=== PATIENT | male | born 1985 | race Caucasian/White ===

== ENCOUNTER 2020-06-13 21:25 | Emergency (ER) | payer BC, SELFPAY ==
[2020-06-13 21:32] VITALS: BP 132/98; PULSE 90; RESP 16; TEMP 36.6; O2SAT 99
--- NOTE | 2020-06-13 21:49 | ED.GENADULT ---
HPI - General Adult General Chief complaint: Wound/Laceration Stated complaint: L THUMB LAC W/ KNIFE Time Seen by Provider: 06/13/20 21:49 Source: patient Mode of arrival: ambulatory Limitations: no limitations History of Present Illness HPI narrative: Patient is a 34-year-old male who presents with laceration left thumb was using an [employer] knife cut the base of the left thumb patient notes his tetanus is up-to-date patient notes minimal discomfort presents per private vehicle no distress Related Data Allergies Allergy/AdvReac Type Severity Reaction Status Date / Time morphine Allergy Unknown rash Verified 06/09/20 15:41 Review of Systems Review of Systems: All systems reviewed & are unremarkable except as noted in HPI and below PMFSH Past Medical History Medical History ADHD (attention deficit hyperactivity disorder), predominantly hyperactive impulsive type Family History Family History (Updated 05/03/16 @ 10:53 by DOCTOR UNKNOWN) Mother Depression Father Depression Social History Social History Smoking status: Never smoker Exam Narrative: Exam Narrative: GENERAL: Well-appearing, well-nourished, and in no acute distress. HEAD: Normocephalic, atraumatic. EYES: PERRLA and EOMI. ENT: Nares clear, no rhinorrhea or epistaxis. Mucous membranes moist. EXTREMITIES: Normal range of motion. No edema. 1 cm linear superficial laceration base left thumb dorsal surface SKIN: Warm, dry, no rash. NEURO: No focal deficits. Alert and oriented x3. Neurovascularly intact PSYCH: Normal mood and affect. Course Course Emergency Course: Patient in the room no distress aware of case findings treatment plan diagnosis Vital Signs Vital signs: Vital Signs Temperature 97.9 F 06/13/20 21:32 Pulse Rate 90 06/13/20 21:32 Respiratory Rate 16 06/13/20 21:32 Blood Pressure 132/98 H 06/13/20 21:32 Pulse Oximetry 99 06/13/20 21:32 Temperature 97.9 F 06/13/20 21:32 Pulse Rate 90 06/13/20 21:32 Respiratory Rate 16 06/13/20 21:32 Blood Pressure 132/98 H 06/13/20 21:32 Pulse Oximetry 99 06/13/20 21:32 Procedures Laceration Laceration 1: Date: 06/13/20 Time: 21:50 Site: upper extremity Side (If applicable): left Size (cm): 1 Description: linear Depth: simple, single layer Local Anesthetic: lidocaine 1% ====== Skin Level ====== Skin layer closed with: elizabeth Number of sutures: 2 ====== Subcutaneous Layer ====== ====== Muscle Layer ====== ====== Tendon Layer ====== Medical Decision Making MDM Narrative Medical decision making narrative: Patients injury or pain is consistent with musculoskeletal etiology. No signs of neurological or vascular compromise on exam. Compartments and tisues are soft without signs of compartment syndrome. Pain is felt appropriate for further evaluation on an outpatient basis. Vital Signs Vital Signs: Vital Signs Temperature 97.9 F 06/13/20 21:32 Pulse Rate 90 06/13/20 21:32 Respiratory Rate 16 06/13/20 21:32 Blood Pressure 132/98 H 06/13/20 21:32 Pulse Oximetry 99 06/13/20 21:32 Temperature 97.9 F 06/13/20 21:32 Pulse Rate 90 06/13/20 21:32 Respiratory Rate 16 06/13/20 21:32 Blood Pressure 132/98 H 06/13/20 21:32 Pulse Oximetry 99 06/13/20 21:32 Discharge Plan Discharge Clinical Impression: Laceration of left thumb Patient Disposition: Home, Self-Care Condition: Stable Instructions: Antibiotic Form, Laceration (DC) Additional Instructions: Keep wound clean and dry. Do not soak, take baths, or swim until wound is completely healed. If any signs of infection such as redness, swelling, increasing pain, drainage of purulent discharge, streaks up your extremity develop, seek medical attention immediately. Fo
== END 2020-06-13 22:02 | disposition home or self-care (01) ==
PROVIDERS: Emergency Provider Emergency Medicine; PCP Internal Medicine
DX: S61.012A Laceration without foreign body of left thumb without damage to nail, initial encounter (principal); W27.0XXA Contact with workbench tool, initial encounter
CPT/HCPCS: 12001; 99282

== ENCOUNTER 2020-10-06 23:00 | Emergency (ER) | payer BC, SELFPAY ==
--- NOTE | ~2020-10-06 | XR_ITS ---
EXAMINATION: XR chest 2V DATE: 10/06/2020 23:22 INDICATION: Left chest pain. TECHNIQUE: Frontal and lateral views of the chest were obtained. COMPARISON: None. FINDINGS: The chest demonstrates clear lungs without pneumonia, pleural effusion, or pneumothorax. Th e heart size is normal. IMPRESSION: 1. No acute cardiopulmonary disease. Reviewed, dictated and finalized at location A.
[2020-10-06 23:03] VITALS: BP 138/77; PULSE 56; RESP 17; TEMP 37; O2SAT 100
--- NOTE | 2020-10-06 23:08 | ECG_ITS ---
Measurements Intervals [place] Rate: 59 P: 39 FL: 145 QRS: 63 QRSD: 104 T: 50 QT: 407 QTc: 403 Interpretive Statements SINUS BRADYCARDIA BASELINE ARTIFACT- I, II, AVR, AVF BORDERLINE ECG Electronically Signed On 10-07-2020 6:23:30 CDT by Wilbur Lloyd D.O.
[2020-10-06 23:19] LABS: Basophils Absolute Auto 0.1 K/mm3 (0.0-0.1); Basophils Percent Auto 0.8 % (0.2-1.2); Eosinophils Absolute Auto 0.1 K/mm3 (0-0.3); Eosinophils Percent Auto 1.7 % (0-4.4); Hematocrit 41.6 % (42.0-52.0); Hemoglobin 13.7 g/dL (14.0-18.0); Immature Granulocyte Absolute 0.04 K/mm3 (0.00-0.031); Immature Granulocyte Percent A 0.5 % (0-0.5); Lymphocytes Absolute Auto 2.21 K/mm3 (0.9-3.2); Lymphocytes Percent Auto 26.8 % (18.3-44.2); Mean Corpuscular HGB Conc 32.9 g/dl (32-36); Mean Corpuscular Hemoglobin 29.3 pg (26-34); Mean Corpuscular Volume 88.9 fl (80-100); Mean Platelet Volume 10.8 fl (7.4-10.4); Monocytes Absolute Auto 0.8 K/mm3 (0.1-0.6); Monocytes Percent Auto 9.4 % (2.6-8.5); Neutrophils Percent Auto 60.8 % (45.5-73.1); Platelet Count Result 222 k/mm3 (150-375); Red Blood Count 4.68 M/mm3 (4.6-6.20); Red Cell Distribution Width 12.6 % (11.5-14.5); White Blood Count 8.3 K/mm3 (4.5-10.0)
[2020-10-06] MEDS: ASPIRIN 81 MG CHEWABLE TABLET 324 MG PO (23:19)
[2020-10-06 23:28] LABS: Anion Gap 6 mmol/L (8-16); Blood Urea Nitrogen 27 mg/dL (9-20); Calcium 9.9 mg/dL (8.4-10.2); Carbon Dioxide 30 mmol/L (22-30); Chloride 100 mmol/L (98-107); Estimated CRCL calculation 89 ml/min; Estimated Glomerular Filt Rate > 60; Glucose 90 mg/dL (75-110); Potassium 3.7 mmol/L (3.4-5.0); Sodium 136 mmol/L (137-145)
[2020-10-06 23:32] LABS: Partial Thromboplastin Time 30.7 SECONDS (22.3-36.8)
[2020-10-06 23:41] LABS: Troponin I < 0.012 ng/mL (0.000-0.034)
--- NOTE | 2020-10-07 00:49 | ED.CHESTPAIN ---
HPI - Chest Pain General Chief Complaint: Chest Pain Stated Complaint: chest pain Time Seen by Provider: 10/06/20 23:16 History of Present Illness HPI narrative: Patient is a 35-year-old male who presents ER with chest pain. He was at work when he began to develop it. Its an aching pain 4 inches lateral to the sternum over his pectoralis minor. Reports he has some discomfort in his left arm with this. 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 Denies nausea/vomiting/diaphoresis/shortness of breath. No personal or family history of coronary disease at young age. Patient does report history of anxiety which increased is concerned about chest pain as well. Related Data Allergies Allergy/AdvReac Type Severity Reaction Status Date / Time morphine Allergy Unknown rash Verified 08/03/20 10:25 Review of Systems Review of Systems: All systems reviewed & are unremarkable except as noted in HPI and below Constitutional: Constitutional: Denies chills, Denies fever(s) and Denies weakness ENT: Denies nasal congestion and Denies sore throat Cardiovascular: Cardiovascular: Reports chest pain, Denies rapid heart rate and Reports radiating jaw, neck or arm pain Respiratory: Respiratory: Denies cough, Denies dyspnea and Denies wheezing Gastrointestinal: Gastrointestinal: Denies abdominal pain, Denies nausea and Denies vomiting PMFSH Past Medical History Medical History (Updated 10/07/20 @ 00:53 by Haim Mcclain MD) ADHD (attention deficit hyperactivity disorder), predominantly hyperactive impulsive type Major depressive disorder, recurrent episode with anxious distress Family History Family History (Updated 05/03/16 @ 10:53 by DOCTOR UNKNOWN) Mother Depression Father Depression Social History Social History Smoking status: Never smoker Exam Narrative: Exam Narrative: GENERAL: Well-appearing, well-nourished, and in no acute distress. HEAD: Normocephalic, atraumatic. NECK: Supple. CHEST: Clear to auscultation. No respiratory distress. HEART: Regular rate and rhythm. Normal peripheral pulses. ABDOMEN: Soft, nontender, nondistended. EXTREMITIES: Normal range of motion. No edema. SKIN: Warm, dry, no rash. NEURO: Alert and oriented x3. PSYCH: Normal mood and affect. Course Course Emergency Course: Patient resting comfortably. Pain resolved. Unremarkable labs. Pain felt to be musculoskeletal in nature. Discharge home. Vital Signs Vital signs: Vital Signs Temperature 98.6 F 10/06/20 23:03 Pulse Rate 56 L 10/06/20 23:03 Respiratory Rate 17 10/06/20 23:03 Blood Pressure 138/77 10/06/20 23:03 Pulse Oximetry 100 10/06/20 23:03 Temperature 98.6 F 10/06/20 23:03 Pulse Rate 56 L 10/06/20 23:03 Respiratory Rate 17 10/06/20 23:03 Blood Pressure 138/77 10/06/20 23:03 Pulse Oximetry 100 10/06/20 23:03 MDM - Chest Pain Lab Data Result diagrams: 10/06/20 23:11 10/06/20 23:11 Labs: Lab Results 10/06/20 10/06/20 10/06/20 Range/Units 23:11 23:11 23:11 WBC 8.3 (4.5-10.0) K/mm3 RBC 4.68 (4.6-6.20) M/mm3 Hgb 13.7 L (14.0-18.0) g/dL Hct 41.6 L (42.0-52.0) % MCV 88.9 (80-100) fl MCH 29.3 (26-34) pg MCHC 32.9 (32-36) g/dl RDW 12.6 (11.5-14.5) % Plt Count 222 (150-375) k/mm3 MPV 10.8 H (7.4-10.4) fl Immature Gran % (Auto) 0.5 (0-0.5) % Neut % (Auto) 60.8 (45.5-73.1) % Lymph % (Auto) 26.8 (18.3-44.2) % [place] % (Auto) 9.4 H (2.6-8.5) % Eos % (Auto) 1.7 (0-4.4) % Baso % (Auto) 0.8 (0.2-1.2) % Lymph # (Auto) 2.21 (0.9-3.2) K/mm3 [place] # (Auto) 0.8 H (0.1-0.6) K/mm3 Eos # (Auto) 0.1 (0-0.3) K/mm3 Baso # (Auto) 0.1 (0.0-0.1) K/mm3 Abs Immat Gran (auto) 0.04 H (0.00-0.031) K/mm3 Absolute Neuts (auto) 5.0 (1.3-6.7) K/mm3 Absolute Nucleated RBC 0.0 (0.0-0.012) K/mm3 Nucl
[2020-10-07] MEDS: KETOROLAC 30 MG/ML VIAL (*BKC) IV PUSH (01:11)
[2020-10-07 01:24] VITALS: BP 119/82; PULSE 51; RESP 16; O2SAT 98
== END 2020-10-07 01:25 | disposition home or self-care (01) ==
PROVIDERS: Emergency Medicine; Emergency Provider Emergency Medicine; PCP Internal Medicine
DX: R07.9 Chest pain, unspecified (principal); F90.9 Attention-deficit hyperactivity disorder, unspecified type; F32.9 Major depressive disorder, single episode, unspecified; R00.1 Bradycardia, unspecified
CPT/HCPCS: 36415; 71046; 80048; 84484; 85025; 85610; 85730; 93005; 96374; 99284; A9270; J1885